=== PATIENT | female | born 1970 | race Caucasian/White ===

== ENCOUNTER → 2016-08-23 | Outpatient (CLI) | payer BC | LOC: MRI 13:00 | DX: M54.5 Low back pain (principal); M47.816 Spondylosis without myelopathy or radiculopathy, lumbar region | CPT/HCPCS: 72148 ==

== ENCOUNTER → 2016-09-02 | Outpatient (CLI) | payer BC | END | disposition home or self-care (01) | LOC: EMI 09:00 | DX: M70.71 Other bursitis of hip, right hip (principal); M53.3 Sacrococcygeal disorders, not elsewhere classified; M76.891 Other specified enthesopathies of right lower limb, excluding foot; S39.013A Strain of muscle, fascia and tendon of pelvis, initial encounter | CPT/HCPCS: 72197; A9577; J7050 ==

== ENCOUNTER → 2020-07-03 | Outpatient (CLI) | payer BC, OTHER ==
[~2020-07-03] MED LIST: CARDIZEM CD120 MG PO; IBUPROFEN600 MG PO; KLONOPIN TAB 00.5 MG PO; MAXIMUM DAILY1 EAC1 PO; NORCO 7.5-3251 EACH PO; ONDANSETRON ODT8 MG PO; VITAMIN C500 MG PO
== END ==
LOC: MAMO 08:00
DX: Z12.31 Encounter for screening mammogram for malignant neoplasm of breast (principal); Z79.890 Hormone replacement therapy
CPT/HCPCS: 77063; 77067

== ENCOUNTER → 2021-07-19 | Outpatient (CLI) | payer BC | LOC: RAD 17:26 | DX: U07.1 COVID-19 (principal) | CPT/HCPCS: 71046 ==